=== PATIENT | female | born 1950 | race American Indian/Alaskan Native ===

== ENCOUNTER 2019-07-17 12:59 | Emergency (ER) | payer MEDICARE ==
[2019-07-17 13:24] VITALS: BP 146/79
--- NOTE | 2019-07-17 13:47 | Emergency Department Report ---
ED General Adult HPI - General Chief complaint: Medical Clearance Stated complaint: HYPERTENSION/AMS Time Seen by Provider: 07/17/19 13:43 Source: EMS Mode of arrival: Wheelchair Limitations: No Limitations - History of Present Illness Initial comments: Patient is a patient at [facility] and is currently being treated for schizoaffective disorder and acute psychosis. Patient's blood pressure at [place] was 202/110 with a heart rate of 107. Patient did admit to not taking any blood pressure medicines for the past several weeks. She denies any chest pain shortness of breath focal neurological signs at this time. Severity scale (0 -10): 0 - Related Data Previous Rx's Medication Instructions Recorded Last Taken Type Amlodipine Besylate [Norvasc] 5 mg PO DAILY #30 tablet 07/17/19 Unknown Rx Allergies Allergy/AdvReac Type Severity Reaction Status Date / Time No Known Allergies Allergy Verified 07/17/19 13:24 ED Review of Systems ROS: Stated complaint: HYPERTENSION/AMS Other details as noted in HPI Comment: All other systems reviewed and negative ED Past Medical Hx - Past Medical History Previous Medical History?: Yes Hx Hypertension: Yes Hx Psychiatric Treatment: Yes (schzioaffective) - Social History Smoking Status: Current Every Day Smoker Substance Use Type: Alcohol, Marijuana - Medications Home Medications: Home Medications Medication Instructions Recorded Confirmed Last Taken Type Amlodipine Besylate [Norvasc] 5 mg PO DAILY #30 tablet 07/17/19 Unknown Rx ED Physical Exam - General Limitations: No Limitations General appearance: alert, in no apparent distress - Head Head exam: Present: atraumatic, normocephalic - Eye Eye exam: Present: normal appearance - ENT ENT exam: Present: normal orophraynx, mucous membranes moist - Neck Neck exam: Present: normal inspection - Respiratory Respiratory exam: Present: normal lung sounds bilaterally. Absent: respiratory distress, wheezes, rales, rhonchi - Cardiovascular Cardiovascular Exam: Present: regular rate, normal rhythm, normal heart sounds. Absent: systolic murmur, diastolic murmur, rubs, gallop - GI/Abdominal GI/Abdominal exam: Present: soft, normal bowel sounds - Extremities Exam Extremities exam: Present: normal inspection - Back Exam Back exam: Present: normal inspection - Neurological Exam Neurological exam: Present: alert, oriented X3 - Psychiatric Psychiatric exam: Present: normal mood, other (Patient is hyperverbal and has tangential thoughts. However she is not an extremis at this time.) - Skin Skin exam: Present: warm, dry, intact, normal color. Absent: rash ED Course Vital Signs 07/17/19 13:00 Temperature 98.8 F Pulse Rate 97 H Respiratory 20 Rate Blood Pressure 146/79 [Right] O2 Sat by Pulse 98 Oximetry ED Medical Decision Making - Medical Decision Making Patient is a 69-year-old F [place]ian female who has a history of hypertension who is presenting for medical clearance to return back to [place]. Patient blood pressure is better here in our emergency department. Patient will be given a prescription for Norvasc and be discharged home. Patient does not remember the blood pressure medication she is on. Critical care attestation.: If time is entered above; I have spent that time in minutes in the direct care of this critically ill patient, excluding procedure time. ED Disposition Clinical Impression: Hypertensive urgency Disposition: DC/TX-65 PSY HOSP/PSY UNIT Is pt being admited?: No Does the pt Need Aspirin: No Condition: Stable Additional Instructions: Patient is medically cleared to return to [facility] Time of Disposition: 13:47
[2019-07-17 14:45] LABS: Hematocrit 38.2 % (30.3-42.9); Hemoglobin 12.5 gm/dl (10.1-14.3); Mean Corpuscular HGB Conc 33 % (30-34); Mean Corpuscular Volume 89 fl (79-97); Platelet Count 263 K/mm3 (140-440); Red Blood Count 4.31 M/mm3 (3.65-5.03); Red Cell Distribution Width 15.8 % (13.2-15.2)
[2019-07-17 15:13] LABS: Alanine Aminotransferase 8 units/L (7-56); Albumin 3.6 g/dL (3.9-5); BUN/Creatinine Ratio 18; Blood Urea Nitrogen 11 mg/dL (7-17); Calcium 10.3 mg/dL (8.4-10.2); Hemolysis Index 4
== END 2019-07-17 17:38 ==
LOC: ED 12:59
DX: I16.0 Hypertensive urgency (principal); F20.9 Schizophrenia, unspecified; F17.200 Nicotine dependence, unspecified, uncomplicated; F12.10 Cannabis abuse, uncomplicated; Z79.899 Other long term (current) drug therapy
CPT/HCPCS: 36415; 80053; 85027

== ENCOUNTER 2019-08-07 09:13 | Emergency (ER) | payer MEDICARE ==
[2019-08-07] MEDS ORDERED: ZIPRASIDONE MESYLATE 20 MG VIAL IM ONE (11:02)
[2019-08-07 14:49] LABS: Basophils % (Auto) 0.3 % (0.0-1.8); Eosinophils # (Auto) 0.1 K/mm3 (0.0-0.4); Eosinophils % (Auto) 1.2 % (0.0-4.3); Hemoglobin 12.1 gm/dl (10.1-14.3); Lymphocytes # (Auto) 2.6 K/mm3 (1.2-5.4); Lymphocytes % (Auto) 34.9 % (13.4-35.0); Mean Corpuscular HGB Conc 33 % (30-34); Mean Corpuscular Volume 90 fl (79-97); Monocytes # (Auto) 1.1 K/mm3 (0.0-0.8); Monocytes % (Auto) 14.1 % (0.0-7.3); Platelet Count 252 K/mm3 (140-440); Red Blood Count 4.13 M/mm3 (3.65-5.03); Red Cell Distribution Width 15.3 % (13.2-15.2)
[2019-08-07 15:02] LABS: Alanine Aminotransferase 12 units/L (7-56); Albumin 3.8 g/dL (3.9-5); BUN/Creatinine Ratio 11; Blood Urea Nitrogen 9 mg/dL (7-17); Calcium 9.9 mg/dL (8.4-10.2); Hemolysis Index 5
[2019-08-07 15:03] LABS: Bilirubin,Direct < 0.2 mg/dL (0-0.2)
--- NOTE | 2019-08-07 19:17 | Emergency Department Report ---
ED General Adult HPI - General Chief complaint: Psych Stated complaint: MARISELA EVSRINIVASA Time Seen by Provider: 08/07/19 10:30 Source: EMS Mode of arrival: Stretcher Limitations: Altered Mental Status - History of Present Illness Initial comments: This is a 69-year-old female who appears to have discharge paperwork in hand from the patient was delusional complaining of , ranting and rambling. She therefore was sent to the emergency department for evaluation. Upon my encounter the patient is obviously responding to internal stimuli. She appears to be delusional and paranoid. She does not cooperate with nursing staff. She received Geodon to facilitate her medical clearance. - Related Data Previous Rx's Medication Instructions Recorded Last Taken Type Amlodipine Besylate [Norvasc] 5 mg PO DAILY #30 tablet 07/17/19 Unknown Rx Allergies Allergy/AdvReac Type Severity Reaction Status Date / Time No Known Allergies Allergy Verified 07/17/19 13:24 ED Review of Systems ROS: Stated complaint: MH EVAL Other details as noted in HPI Comment: Unobtainable due to pts medical conditions ED Past Medical Hx - Past Medical History Hx Hypertension: Yes Hx Psychiatric Treatment: Yes (schzioaffective) - Social History Smoking Status: Current Every Day Smoker Substance Use Type: Alcohol, Marijuana - Medications Home Medications: Home Medications Medication Instructions Recorded Confirmed Last Taken Type Amlodipine Besylate [Norvasc] 5 mg PO DAILY #30 tablet 07/17/19 Unknown Rx ED Physical Exam - General Limitations: Altered Mental Status General appearance: alert, in no apparent distress - Head Head exam: Present: atraumatic, normocephalic - Eye Eye exam: Present: normal appearance. Absent: scleral icterus - ENT ENT exam: Present: mucous membranes moist - Neck Neck exam: Present: normal inspection - Respiratory Respiratory exam: Present: normal lung sounds bilaterally. Absent: respiratory distress - Cardiovascular Cardiovascular Exam: Present: regular rate, normal rhythm. Absent: systolic murmur, diastolic murmur, rubs, gallop - GI/Abdominal GI/Abdominal exam: Present: soft, normal bowel sounds. Absent: distended, tenderness, guarding, rebound - Extremities Exam Extremities exam: Present: normal inspection - Back Exam Back exam: Present: normal inspection - Neurological Exam Neurological exam: Present: CN II-XII intact (As testable). Absent: motor sensory deficit - Psychiatric Psychiatric exam: Present: agitated, flat affect - Skin Skin exam: Present: warm, dry, intact, normal color. Absent: rash ED Course - Reevaluation(s) Reevaluation #1: 1013. Mental health informed. I assume the patient may be eligible to go back to [place]. I will anterior PRN Geodon orders. 08/07/19 19:18 08/07/19 19:20 ED Medical Decision Making - Lab Data Result diagrams: 08/07/19 13:43 08/07/19 13:43 Laboratory Results - last 24 hr 08/07/19 08/07/19 13:43 13:43 WBC 7.6 RBC 4.13 Hgb 12.1 Hct 37.0 MCV 90 MCH 29 MCHC 33 RDW 15.3 H Plt Count 252 Lymph % (Auto) 34.9 Logan % (Auto) 14.1 H Eos % (Auto) 1.2 Baso % (Auto) 0.3 Lymph # 2.6 Logan # 1.1 H Eos # 0.1 Baso # 0.0 Seg Neutrophils % 49.5 Seg Neutrophils # 3.7 Sodium 140 Potassium 4.1 Chloride 102.1 Carbon Dioxide 27 Anion Gap 15 BUN 9 Creatinine 0.8 Estimated GFR > 60 BUN/Creatinine Ratio 11 Glucose 127 H Calcium 9.9 Magnesium 2.00 Total Bilirubin 0.30 Direct Bilirubin < 0.2 AST 15 ALT 12 Alkaline Phosphatase 93 Total Creatine Kinase 195 H CK-MB (CK-2) 3.0 CK-MB (CK-2) Rel Index 1.5 Troponin T < 0.010 Total Protein 6.8 Albumin 3.8 L Albumin/Globulin Ratio 1.3 Critical care attestation.: If time is entered above; I have spent that time in minutes in the direct care of this critically ill patient, excluding procedure time. ED Disposition Clinical Impression: Acute psychosis Disposition: DC/TX-65 PSY HOSP/PSY UNIT Is pt being admited?: No Does the pt Need Aspirin: No Condition: Stable Referrals: JOLENE STOVER [Other] - 3-5 Days Time of Disposition: 19:20
[2019-08-07] MEDS ORDERED: ALUM-MAG HYDROXIDE-SIMETHICONE 200-200-20MG/5ML ORAL LIQD 30 ML PO PRN (19:21)
[2019-08-07] MEDS ORDERED: MAGNESIUM HYDROXIDE (MOM) ORAL LIQD UDC PO PRN (19:21)
[2019-08-07] MEDS ORDERED: ACETAMINOPHEN 325 MG TAB PO PRN (19:21)
[2019-08-07] MEDS ORDERED: ZIPRASIDONE MESYLATE 20 MG VIAL IM PRN (19:22)
[2019-08-07 20:07] VITALS: BP 141/72
[2019-08-07 21:51] LABS: Bacteria,Urine 1+ /HPF (Negative); Bilirubin,Urine NEG (Negative); Blood,Urine NEG (Negative); Color,Urine Yellow (Yellow); Protein,Urine <15 mg/dL mg/dL (Negative)
[2019-08-07] MEDS ORDERED: ZIPRASIDONE 20 MG CAP PO SCH (22:00)
[2019-08-07] MEDS ORDERED: NITROFURANTOIN MONOHYD/M-CRYST 100 MG CAP PO ONE (22:34)
== END 2019-08-07 23:35 ==
LOC: ED 09:13 → EEVIPCON 09:13 → ED 23:35
DX: F23 Brief psychotic disorder (principal); I10 Essential (primary) hypertension; F17.200 Nicotine dependence, unspecified, uncomplicated; F12.10 Cannabis abuse, uncomplicated; Z79.899 Other long term (current) drug therapy
CPT/HCPCS: 36415; 80048; 80076; 81001; 82550; 82553; 83735; 84484; 85025; 96372; 99285; J3486

== ENCOUNTER 2019-08-07 18:57 | Inpatient (IN) | payer MEDICARE ==
[2019-08-07 21:40] LABS: Bilirubin,Urine NEG (Negative); Blood,Urine NEG (Negative); Color,Urine Yellow (Yellow); Mucus,Urine FEW /HPF; Protein,Urine <15 mg/dL mg/dL (Negative)
--- NOTE | 2019-08-08 09:10 | History and Physical Report ---
GP History & Physical - History of Present Illness Date of admission: 08/07/19 Date of Examination: 08/08/19 Reason for Admission: Danger to self History of Present Illness: Andrea Farr is a 69y/o female patient who was admitted into the hospital for bizarre, and delusional behavior and responding to internal stimuli as stated by admission note. During my interview with the patient this morning, she is heard talking to herself as I'm approaching the room. She is sitting on the night table looking out of the window talking loudly. The patient is a/o x 2. She is a poor historian. She's unable to give any insight at to her history or what is presently going on with her. She tells me, "I've been discharged. I need to pack my clothes up." She says, "I'm taking this with me." She picks up the Bible laying in the shelf and shows it to me. When asked about her mood, the patient states, "I'm doing fine. I'm great." She denies SI/HI or hallucinations of any kind. PAST PSYCHIATRIC HISTORY Unable to obtain PAST MEDICAL HISTORY: Unable to obtain Family Psychiatric History: Unable to obtain SOCIAL HISTORY Unable to obtain REVIEW OF SYSTEMS Constitutional: Negative for weight loss ENT: Negative for stridor Respiratory: Negative for cough or hemoptysis All other systems reviewed and are negative MENTAL STATUS EXAMINATION General Appearance: Dressed appropriately. Behavior: Cooperative Mood: "fine, great" Affect: Congruent with stated mood Speech: Normal tone and pace Thought Process: Responding to internal stimuli Suicidal Ideation: Denies Homicidal Ideation: Denies Hallucinations: Auditory Delusions: Yes Insight and Judgment: Limited Memory/Cognition: Limited ASSESSMENT Schizoaffective Disorder Treatment Plan Patient will be admitted for inpatient psychiatric evaluation, medication adjustment and close monitoring The patient's behavior, mood, sleep and appetite will be closely monitored. Patient will be enrolled in individual and group therapeutic sessions and encouraged to attend. Patient will be provided with a safe and structured environment. Patient's physical health needs will be addressed by the Hospitalist. Hospitalist Consulted Labs including CBC, CMP, Lipid profile and Hemoglobin A1C ordered Social Assessment will be completed and the Docking Pilot will work with patient and family to ensure a suitable and safe disposition Medication adjustment will be made as clinically indicated Usual Wellness Buddhist/Preservation: Depakote DR 250mg po BID Risperidone 0.5mg po BID Trazodone 50mg po qhs Melatonin 5mg po qhs prn insomnia Geodon 10mg IM q6h prn agitation This is an acknowledgement statement that Andrea Farr is a 69y/o female patient who requires inpatient psychiatric admission for treatment which could reasonably be expected to improve the patient's condition for Schizoaffective Disorder Estimated period of time patient will need to remain in the hospital: [7] Plan for post-hospital care: [Outpatient ] Legal Status: Voluntary Reaction to Hospitalization: Accepting Medications and Allergies Allergies Allergy/AdvReac Type Severity Reaction Status Date / Time No Known Allergies Allergy Verified 07/17/19 13:24 Home Medications Medication Instructions Recorded Confirmed Last Taken Type Amlodipine Besylate [Norvasc] 5 mg PO DAILY #30 tablet 07/17/19 08/08/19 Unknown Rx Nitrofurantoin [place]/M-Cryst 100 mg PO Q12HR #14 capsule 08/07/19 08/08/19 Unknown Rx [Macrobid CAP] Results - Results Labs/Vitals: Laboratory Last Values POC Glucose 112 (70-105) H 08/08/19 00:18 Hemoglobin A1c 5.7 % (4-6) 08/07/19 13:43 Urine Color Yellow (Yellow) 08/07/19 21:20 Urine Turbidity Clear (Clear) 08/07/19 21:20 Urine pH 6.0 (5.0-7.0) 08/07/19 21:20 Ur Specific [place] 1.013 (1.003-1.030) 08/07/19 21:20 Urine Protein <15 mg/dl mg/dL (Negative) 08/07/19 21:20 Urine Glucose (UA) Neg mg/dL (Negative) 08/07/19 21:20 Urine Ketones Neg mg/dL (Negative) 08/07/19 21:20 Urine Blood Neg (Negative) 08/07/19 21:20 Urine Nitrite Neg (Negative) 08/07/19 21:20 Urine Bilirubin Neg (Negative) 08/07/19 21:20 Urine Urobilinogen 2.0 mg/dL (<2.0) 08/07/19 21:20 Ur Leukocyte Esterase Mod (Negative) 08/07/19 21:20 Urine WBC (Auto) 23.0 /HPF (0.0-6.0) H 08/07/19 21:20 Urine RBC (Auto) 2.0 /HPF (0.0-6.0) 08/07/19 21:20 U Epithel Cells (Auto) < 1.0 /HPF (0-13.0) 08/07/19 21:20 Urine Mucus Few /HPF 08/07/19 21:20 Physician Certification - Certification Statement Physician Certification Statement: This is an acknowledgement statement that ANDREA FARR is a 69 year old F who requires inpatient psychiatric admission for treatment which could reasonably be expected to improve the patient's condition for Estimated period of time patient will need to remain in the hospital: [ ] Plan for post-hospital care: [ ]
[2019-08-08] MEDS ORDERED: ZIPRASIDONE MESYLATE 20 MG VIAL IM PRN (09:15)
--- NOTE | 2019-08-08 11:13 | Consultation ---
History of Present Illness - Reason for Consult Consult date: 08/08/19 Hypertension Requesting physician: CHONG BENÍTEZ - History of Present Illness Patient is 69 yo with hypertension who was admitted into the hospital for schizoaffective disorder. Hospitalist consulted for management of hypertension. She has been on Norvasc for hypertension. patient is talking to herself could not answer most questions. She is poor historian. Past History Past Medical History: hypertension Past Surgical History: Other (Unknown) Social history: smoking Family history: no significant family history Medications and Allergies Allergies Allergy/AdvReac Type Severity Reaction Status Date / Time No Known Allergies Allergy Verified 07/17/19 13:24 Home Medications Medication Instructions Recorded Confirmed Last Taken Type Amlodipine Besylate [Norvasc] 5 mg PO DAILY #30 tablet 07/17/19 08/08/19 Unknown Rx Nitrofurantoin [place]/M-Cryst 100 mg PO Q12HR #14 capsule 08/07/19 08/08/19 Unknown Rx [Macrobid CAP] Active Meds: Active Medications Divalproex Sodium (Depakote Dr) 125 mg PO BID WILDER Melatonin (Melatonin) 5 mg PO QHS PRN PRN Reason: Sleep Risperidone (Risperdal) 0.5 mg PO BID WILDER Trazodone HCl (Desyrel) 50 mg PO QHS WILDER Ziprasidone (Geodon) 10 mg IM Q6H PRN PRN Reason: Agitation Review of Systems ROS unobtainable: due to mental status (Patient cannot because of schizoaffective disorder) Exam - Physical Exam Narrative exam: GEN: Not in acute distress, obese, sitting up in chair HEENT: Normocephalic, atraumatic, Neck: supple, No JVD Lungs: Clear to auscultation bilaterally, heart;S1 and S2 reg, no murmurs, rubs or gallop Abd:soft, non tender, non distended, normal bowel sounds, Ext: No edema, no clubbing, no cyanosis, Neuro: Awake,alert,oriented X3 , no focal signs, Psych:maniac, talking to self Results - Labs Labs: Abnormal lab results 08/07/19 08/08/19 Range/Units 21:20 00:18 POC Glucose 112 H (70-105) Urine WBC (Auto) 23.0 H (0.0-6.0) /HPF Assessment and Plan Schizoaffective disorder Managed by Psychiatry attending [place] [facility] currently elevated at 165/71 Monitor BP check q shift Thanks for the consult, Dr. Benítez Will follow
[2019-08-08] MEDS: DIVALPROEX DR 125 MG TAB PO SCH ×2 (11:31→21:10)
[2019-08-08] MEDS: risperiDONE 0.25 MG TAB PO SCH ×3 (11:31→21:11)
[2019-08-08] MEDS: amLODIPine 5 MG TAB PO SCH (14:44)
[2019-08-08] MEDS: NITROFURANTOIN MONOHYD/M-CRYST 100 MG CAP PO SCH ×2 (14:45→22:46)
[2019-08-08] MEDS ORDERED: HALOPERIDOL LACTATE 5 MG/1 ML INJ IM PRN (21:10)
[2019-08-08] MEDS: traZODone 50 MG TAB PO SCH ×2 (21:11)
[2019-08-08] MEDS: LORazepam 2 MG/ML VIAL IM SCH (22:45)
[2019-08-09] MEDS: LORazepam 2 MG/ML VIAL IM SCH (03:46)
[2019-08-09 06:00] LABS: Basophils % (Auto) 0.4 % (0.0-1.8); Eosinophils # (Auto) 0.1 K/mm3 (0.0-0.4); Hematocrit 38.4 % (30.3-42.9); Hemoglobin 12.3 gm/dl (10.1-14.3); Lymphocytes # (Auto) 2.8 K/mm3 (1.2-5.4); Lymphocytes % (Auto) 34.9 % (13.4-35.0); Mean Corpuscular HGB Conc 32 % (30-34); Mean Corpuscular Volume 89 fl (79-97); Monocytes # (Auto) 1.1 K/mm3 (0.0-0.8); Monocytes % (Auto) 13.6 % (0.0-7.3); Platelet Count 266 K/mm3 (140-440); Red Cell Distribution Width 15.3 % (13.2-15.2)
[2019-08-09 06:16] LABS: Alanine Aminotransferase 12 units/L (7-56); Albumin 3.7 g/dL (3.9-5); BUN/Creatinine Ratio 17; Blood Urea Nitrogen 12 mg/dL (7-17); Calcium 9.9 mg/dL (8.4-10.2); Hemolysis Index 8; LDL Cholesterol,Direct 49 mg/dL (50-130)
[2019-08-09 06:33] LABS: Chol/HDL Ratio 1.76 %; HDL Cholesterol 65 mg/dL (40-59)
--- NOTE | 2019-08-09 08:28 | Progress Note ---
Subjective Date of service: 08/09/19 Subjective Comment: The patient's medical record was reviewed and the patient's progress was discussed with the nursing staff. The nurse note states the patient is alert and oriented to person, disorganized, bizarre, and responding to internal stimuli. THE NURSE TECH STATED THAT PATIENT TOOK MR. CORNEL FREDERICK GLASSES AND WHEN SHE ASKED HER , SAID THAT SHE TOOK THE GLASSES TO PATIENTS ROOM . , UNABLE TO LOCATE GLASSES, PATIENT BECAME MORE ANXIOUS , PACING AND IMPULSIVE DESPITE GEODON GIVEN THIS AFTERNOON PATIENT INCONTINENT OF URINE , IN THE ROOM , REMOVED HER CLOTHES AND WAS NAKED IN THE HALLWAY. During my interview with the patient this morning, she is lying in bed asleep. She easily arouses. She is a/o x 1. She is calm and cooperative. She describes her mood as "good." She denies SI/HI, and states, "I love everybody." She denies hallucinations of any kind. The patient states, "I slept good" when asked. As I'm leaving the room, the patient is talking aloud to herself. Reason for continued inpatient treatment: The patient continues to be disorganized, hallucinate and exhibit bizarre behavior. REVIEW OF SYSTEMS Constitutional: Negative for weight loss ENT: Negative for stridor Respiratory: Negative for cough or hemoptysis All other systems reviewed and are negative MENTAL STATUS EXAMINATION General Appearance: Dressed appropriately. Behavior: calm and cooperative Mood: "good" Affect: Restricted Speech: Normal tone and pace Thought Process: Responding to internal stimuli Suicidal Ideation: Denies Homicidal Ideation: Denies Hallucinations: Auditory Delusions: None elicited Insight and Judgment: Limited Memory/Cognition: Limited ASSESSMENT Schizoaffective Disorder Treatment Plan Patient will be admitted for inpatient psychiatric evaluation, medication adjustment and close monitoring The patient's behavior, mood, sleep and appetite will be closely monitored. Patient will be enrolled in individual and group therapeutic sessions and encouraged to attend. Patient will be provided with a safe and structured environment. Patient's physical health needs will be addressed by the Hospitalist. Hospitalist Consulted Labs including CBC, CMP, Lipid profile and Hemoglobin A1C ordered Social Assessment will be completed and the [place] Worker will work with patient and family to ensure a suitable and safe disposition Medication adjustment will be made as clinically indicated Usual Wellness Adventist/Preservation: Increased Risperidone 1mg po BID Haldol 2mg IM q6h prn agitation yesterday Lorazepam 1mg IM q6h prn agitation yesterday D/c Geodon 10mg IM q6h prn agitation (did not respond well to) Estimated period of time patient will need to remain in the hospital: [6] Plan for post-hospital care: [Outpatient ] Medications and Allergies Allergies Allergy/AdvReac Type Severity Reaction Status Date / Time No Known Allergies Allergy Verified 07/17/19 13:24 Home Medications Medication Instructions Recorded Confirmed Last Taken Type Amlodipine Besylate [Norvasc] 5 mg PO DAILY #30 tablet 07/17/19 08/08/19 Unknown Rx Nitrofurantoin [place]/M-Cryst 100 mg PO Q12HR #14 capsule 08/07/19 08/08/19 Unknown Rx [Macrobid CAP] Active Meds: Active Medications Amlodipine Besylate (Amlodipine) 5 mg PO DAILY [facility] Last Admin: 08/08/19 14:44 Dose: 5 mg Documented by: Divalproex Sodium (Depakote Dr) 125 mg PO BID [facility] Last Admin: 08/08/19 21:10 Dose: 125 mg Documented by: Haloperidol Lactate (Haldol) 2 mg IM Q6H PRN PRN Reason: Agitation Lorazepam (Ativan) 1 mg IM Q6H [facility] Last Admin: 08/09/19 03:46 Dose: 1 mg Documented by: Melatonin (Melatonin) 5 mg PO QHS PRN PRN Reason: Sleep Nitrofurantoin Macrocrystals (Macrobid) 100 mg PO Q12HR [facility] Last Admin: 08/08/19 22:46 Dose: Not Given Documented by: Risperidone (Risperdal) 0.5 mg PO BID [facility] Last Admin: 08/08/19 21:10 Dose: Not Given Documented by: Trazodone HCl (Desyrel) 50 mg PO QHS [facility] Last Admin: 08/08/19 21:11 Dose: Not Given Documented by: Results - Results Labs/Vitals: Laboratory Last Values WBC 8.1 K/mm3 (4.5-11.0) 08/09/19 05:41 RBC 4.30 M/mm3 (3.65-5.03) 08/09/19 05:41 Hgb 12.3 gm/dl (10.1-14.3) 08/09/19 05:41 Hct 38.4 % (30.3-42.9) 08/09/19 05:41 MCV 89 fl (79-97) 08/09/19 05:41 MCH 29 pg (28-32) 08/09/19 05:41 MCHC 32 % (30-34) 08/09/19 05:41 RDW 15.3 % (13.2-15.2) H 08/09/19 05:41 Plt Count 266 K/mm3 (140-440) 08/09/19 05:41 Lymph % (Auto) 34.9 % (13.4-35.0) 08/09/19 05:41 [place] % (Auto) 13.6 % (0.0-7.3) H 08/09/19 05:41 Eos % (Auto) 1.0 % (0.0-4.3) 08/09/19 05:41 Baso % (Auto) 0.4 % (0.0-1.8) 08/09/19 05:41 Lymph # 2.8 K/mm3 (1.2-5.4) 08/09/19 05:41 [place] # 1.1 K/mm3 (0.0-0.8) H 08/09/19 05:41 Eos # 0.1 K/mm3 (0.0-0.4) 08/09/19 05:41 Baso # 0.0 K/mm3 (0.0-0.1) 08/09/19 05:41 Seg Neutrophils % 50.1 % (40.0-70.0) 08/09/19 05:41 Seg Neutrophils # 4.0 K/mm3 (1.8-7.7) 08/09/19 05:41 Sodium 140 mmol/L (137-145) 08/09/19 05:41 Potassium 3.9 mmol/L (3.6-5.0) 08/09/19 05:41 Chloride 104.0 mmol/L (98-107) 08/09/19 05:41 Carbon Dioxide 25 mmol/L (22-30) 08/09/19 05:41 Anion Gap 15 mmol/L 08/09/19 05:41 BUN 12 mg/dL (7-17) 08/09/19 05:41 Creatinine 0.7 mg/dL (0.7-1.2) 08/09/19 05:41 Estimated GFR > 60 ml/min 08/09/19 05:41 BUN/Creatinine Ratio 17 % 08/09/19 05:41 Glucose 106 mg/dL (65-100) H 08/09/19 05:41 POC Glucose 112 (70-105) H 08/08/19 00:18 Hemoglobin A1c 5.7 % (4-6) 08/07/19 13:43 Calcium 9.9 mg/dL (8.4-10.2) 08/09/19 05:41 Total Bilirubin 0.40 mg/dL (0.1-1.2) 08/09/19 05:41 AST 16 units/L (5-40) 08/09/19 05:41 ALT 12 units/L (7-56) 08/09/19 05:41 Alkaline Phosphatase 91 units/L (35-129) 08/09/19 05:41 Total Protein 6.7 g/dL (6.3-8.2) 08/09/19 05:41 Albumin 3.7 g/dL (3.9-5) L 08/09/19 05:41 Albumin/Globulin Ratio 1.2 % 08/09/19 05:41 Triglycerides 33 mg/dL (2-149) 08/09/19 05:41 Cholesterol 115 mg/dL (50-199) 08/09/19 05:41 LDL Cholesterol Direct 49 mg/dL (50-130) L 08/09/19 05:41 HDL Cholesterol 65 mg/dL (40-59) H 08/09/19 05:41 Cholesterol/HDL Ratio 1.76 % 08/09/19 05:41 TSH 1.340 mlU/mL (0.270-4.200) 08/09/19 05:41 Urine Color Yellow (Yellow) 08/07/19 21:20 Urine Turbidity Clear (Clear) 08/07/19 21:20 Urine pH 6.0 (5.0-7.0) 08/07/19 21:20 Ur Specific [place] 1.013 (1.003-1.030) 08/07/19 21:20 Urine Protein <15 mg/dl mg/dL (Negative) 08/07/19 21:20 Urine Glucose (UA) Neg mg/dL (Negative) 08/07/19 21:20 Urine Ketones Neg mg/dL (Negative) 08/07/19 21:20 Urine Blood Neg (Negative) 08/07/19 21:20 Urine Nitrite Neg (Negative) 08/07/19 21:20 Urine Bilirubin Neg (Negative) 08/07/19 21:20 Urine Urobilinogen 2.0 mg/dL (<2.0) 08/07/19 21:20 Ur Leukocyte Esterase Mod (Negative) 08/07/19 21:20 Urine WBC (Auto) 23.0 /HPF (0.0-6.0) H 08/07/19 21:20 Urine RBC (Auto) 2.0 /HPF (0.0-6.0) 08/07/19 21:20 U Epithel Cells (Auto) < 1.0 /HPF (0-13.0) 08/07/19 21:20 Urine Mucus Few /HPF 08/07/19 21:20 Last Vital Signs Temp 98.6 F 08/09/19 05:39 Pulse 84 08/09/19 05:40 Resp 18 08/08/19 14:41 BP 111/57 08/09/19 05:40 Pulse Ox 91 08/08/19 14:41
[2019-08-09] MEDS ORDERED: LORazepam 2 MG/ML VIAL IM PRN (09:00)
[2019-08-09] MEDS: amLODIPine 5 MG TAB PO SCH (14:12)
[2019-08-09] MEDS: risperiDONE 1 MG TAB PO SCH ×2 (14:12→21:27)
[2019-08-09] MEDS: NITROFURANTOIN MONOHYD/M-CRYST 100 MG CAP PO SCH ×2 (14:13→21:27)
[2019-08-09] MEDS: DIVALPROEX DR 125 MG TAB PO SCH ×2 (14:13→21:26)
[2019-08-09] MEDS: MELATONIN 5 MG TAB PO PRN (21:27)
[2019-08-09] MEDS: traZODone 50 MG TAB PO SCH (21:27)
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
[2019-08-10] MEDS: DIVALPROEX DR 250 MG TAB PO SCH ×2 (11:14→22:00)
[2019-08-10] MEDS: amLODIPine 5 MG TAB PO SCH (11:14)
[2019-08-10] MEDS: risperiDONE 1 MG TAB PO SCH ×2 (11:15→22:00)
[2019-08-10] MEDS: NITROFURANTOIN MONOHYD/M-CRYST 100 MG CAP PO SCH ×2 (11:19→22:00)
[2019-08-10] MEDS: traZODone 50 MG TAB PO SCH (22:01)
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
[2019-08-11] MEDS: risperiDONE 1 MG TAB PO SCH ×2 (09:42→21:07)
[2019-08-11] MEDS: amLODIPine 5 MG TAB PO SCH (09:42)
[2019-08-11] MEDS: NITROFURANTOIN MONOHYD/M-CRYST 100 MG CAP PO SCH ×2 (09:43→21:07)
[2019-08-11] MEDS: DIVALPROEX DR 250 MG TAB PO SCH ×2 (09:43→21:07)
--- NOTE | 2019-08-11 11:31 | Progress Note ---
Assessment and Plan - Patient Problems (1) Hypertension Current Visit: Yes Status: Acute Qualifiers: Hypertension type: essential hypertension Qualified Code(s): I10 - Essential (primary) hypertension Plan to address problem: Monitor blood pressure every shift, continue medical management. History Interval history: 69 YO Female with HTN admitted to [facility] for psychiatric stabilization. Patient convalesced well overnight. No reported nursing events. Patient denies fever, chills, chest pain, palpitations, no reported trauma or falls. Hospitalist Physical - Constitutional Vitals: Temp Pulse Resp BP Pulse Ox 97.7 F 67 18 145/91 97 08/11/19 08:24 08/11/19 08:24 08/11/19 08:24 08/11/19 08:24 08/11/19 08:24 General appearance: Present: no acute distress, obese - EENT Eyes: Present: PERRL ENT: hearing intact - Neck Neck: Present: supple - Respiratory Respiratory: bilateral: CTA - Cardiovascular Rhythm: regular Heart Sounds: Present: S1 & S2 - Extremities Extremities: no ischemia Peripheral Pulses: within normal limits - Abdominal General gastrointestinal: soft, non-tender, non-distended - Integumentary Integumentary: Present: clear, dry - Psychiatric Psychiatric: cooperative - Neurologic Neurologic: CNII-XII intact Results - Labs CBC & Chem 7: 08/09/19 05:41 08/09/19 05:41 Labs: Laboratory Last Values WBC 8.1 K/mm3 (4.5-11.0) 08/09/19 05:41 RBC 4.30 M/mm3 (3.65-5.03) 08/09/19 05:41 Hgb 12.3 gm/dl (10.1-14.3) 08/09/19 05:41 Hct 38.4 % (30.3-42.9) 08/09/19 05:41 MCV 89 fl (79-97) 08/09/19 05:41 MCH 29 pg (28-32) 08/09/19 05:41 MCHC 32 % (30-34) 08/09/19 05:41 RDW 15.3 % (13.2-15.2) H 08/09/19 05:41 Plt Count 266 K/mm3 (140-440) 08/09/19 05:41 Lymph % (Auto) 34.9 % (13.4-35.0) 08/09/19 05:41 [place] % (Auto) 13.6 % (0.0-7.3) H 08/09/19 05:41 Eos % (Auto) 1.0 % (0.0-4.3) 08/09/19 05:41 Baso % (Auto) 0.4 % (0.0-1.8) 08/09/19 05:41 Lymph # 2.8 K/mm3 (1.2-5.4) 08/09/19 05:41 [place] # 1.1 K/mm3 (0.0-0.8) H 08/09/19 05:41 Eos # 0.1 K/mm3 (0.0-0.4) 08/09/19 05:41 Baso # 0.0 K/mm3 (0.0-0.1) 08/09/19 05:41 Seg Neutrophils % 50.1 % (40.0-70.0) 08/09/19 05:41 Seg Neutrophils # 4.0 K/mm3 (1.8-7.7) 08/09/19 05:41 Sodium 140 mmol/L (137-145) 08/09/19 05:41 Potassium 3.9 mmol/L (3.6-5.0) 08/09/19 05:41 Chloride 104.0 mmol/L (98-107) 08/09/19 05:41 Carbon Dioxide 25 mmol/L (22-30) 08/09/19 05:41 Anion Gap 15 mmol/L 08/09/19 05:41 BUN 12 mg/dL (7-17) 08/09/19 05:41 Creatinine 0.7 mg/dL (0.7-1.2) 08/09/19 05:41 Estimated GFR > 60 ml/min 08/09/19 05:41 BUN/Creatinine Ratio 17 % 08/09/19 05:41 Glucose 106 mg/dL (65-100) H 08/09/19 05:41 POC Glucose 112 (70-105) H 08/08/19 00:18 Hemoglobin A1c 5.7 % (4-6) 08/07/19 13:43 Calcium 9.9 mg/dL (8.4-10.2) 08/09/19 05:41 Total Bilirubin 0.40 mg/dL (0.1-1.2) 08/09/19 05:41 AST 16 units/L (5-40) 08/09/19 05:41 ALT 12 units/L (7-56) 08/09/19 05:41 Alkaline Phosphatase 91 units/L (35-129) 08/09/19 05:41 Total Protein 6.7 g/dL (6.3-8.2) 08/09/19 05:41 Albumin 3.7 g/dL (3.9-5) L 08/09/19 05:41 Albumin/Globulin Ratio 1.2 % 08/09/19 05:41 Triglycerides 33 mg/dL (2-149) 08/09/19 05:41 Cholesterol 115 mg/dL (50-199) 08/09/19 05:41 LDL Cholesterol Direct 49 mg/dL (50-130) L 08/09/19 05:41 HDL Cholesterol 65 mg/dL (40-59) H 08/09/19 05:41 Cholesterol/HDL Ratio 1.76 % 08/09/19 05:41 TSH 1.340 mlU/mL (0.270-4.200) 08/09/19 05:41 Urine Color Yellow (Yellow) 08/07/19 21:20 Urine Turbidity Clear (Clear) 08/07/19 21:20 Urine pH 6.0 (5.0-7.0) 08/07/19 21:20 Ur Specific [place] 1.013 (1.003-1.030) 08/07/19 21:20 Urine Protein <15 mg/dl mg/dL (Negative) 08/07/19 21:20 Urine Glucose (UA) Neg mg/dL (Negative) 08/07/19 21:20 Urine Ketones Neg mg/dL (Negative) 08/07/19 21:20 Urine Blood Neg (Negative) 08/07/19 21:20 Urine Nitrite Neg (Negative) 08/07/19 21:20 Urine Bilirubin Neg (Negative) 08/07/19 21:20 Urine Urobilinogen 2.0 mg/dL (<2.0) 08/07/19 21:20 Ur Leukocyte Esterase Mod (Negative) 08/07/19 21:20 Urine WBC (Auto) 23.0 /HPF (0.0-6.0) H 08/07/19 21:20 Urine RBC (Auto) 2.0 /HPF (0.0-6.0) 08/07/19 21:20 U Epithel Cells (Auto) < 1.0 /HPF (0-13.0) 08/07/19 21:20 Urine Mucus Few /HPF 08/07/19 21:20 Microbiology: Microbiology 08/07/19 21:20 Urine,Clean Catch Urine Culture - Final García/IV: Voiding Method Toilet Active Medications - Current Medications Current Medications: Generic Name Dose Route Start Last Admin Trade Name Freq PRN Reason Stop Dose Admin Amlodipine Besylate 5 mg 08/08/19 14:00 08/11/19 09:42 Amlodipine PO 5 mg DAILY [facility] Administration Divalproex Sodium 250 mg 08/10/19 10:00 08/11/19 09:[address] PO 250 mg BID [facility] Administration Haloperidol Lactate 2 mg 08/08/19 21:10 Haldol IM Q6H PRN Agitation Lorazepam 1 mg 08/09/19 09:00 Ativan IM Q6H PRN Agitation Melatonin 5 mg 08/08/19 22:00 08/09/19 21:27 Melatonin PO 5 mg QHS PRN Administration Sleep Nitrofurantoin Macrocrystals 100 mg 08/08/19 14:30 08/11/19 09:43 Macrobid PO 08/14/19 22:01 100 mg Q12HR [facility] Administration Risperidone 2 mg 08/11/19 10:00 08/11/19 09:42 Risperdal PO 2 mg BID [facility] Administration Trazodone HCl 50 mg 08/08/19 22:00 08/10/19 22:01 Desyrel PO 50 mg QHS [facility] Administration
[2019-08-11] MEDS: traZODone 50 MG TAB PO SCH (21:07)
--- NOTE | 2019-08-12 09:12 | Progress Note ---
Subjective Date of service: 08/12/19 Principal diagnosis: Schizoaffective Disorder Subjective Comment: The patient's medical record was reviewed and the patient's progress was discussed with the nursing staff. The nurse note states the patient is pacing hallway talking to herself. The patient removed all her clothes, sits down on the floor in front of her room in hallway. She also changes cloths frequently. During my interview with the patient this morning, she is sitting on the toilet. She says she feels "pretty good." She says her night went "well," and she slept "good." She denies SI/HI and hallucinations of any kind. The patient says her appetite has been "okay." Reason for continued inpatient treatment: The patient's mentation has improved, but she continues to be disorganized at times. Will continue to stabilize and plan for discharge. REVIEW OF SYSTEMS Constitutional: Negative for weight loss ENT: Negative for stridor Respiratory: Negative for cough or hemoptysis All other systems reviewed and are negative MENTAL STATUS EXAMINATION General Appearance: Dressed appropriately. Behavior: calm and cooperative Mood: "pretty good" Affect: Congruent with stated mood Speech: Normal tone and pace Thought Process: goal directed this morning, but disorganized at times Suicidal Ideation: Denies Homicidal Ideation: Denies Hallucinations: Denies Delusions: None elicited Insight and Judgment: Limited Memory/Cognition: Limited ASSESSMENT Schizoaffective Disorder Treatment Plan Patient will be admitted for inpatient psychiatric evaluation, medication adjustment and close monitoring The patient's behavior, mood, sleep and appetite will be closely monitored. Patient will be enrolled in individual and group therapeutic sessions and encouraged to attend. Patient will be provided with a safe and structured environment. Patient's physical health needs will be addressed by the Hospitalist. Hospitalist Consulted Labs including CBC, CMP, Lipid profile and Hemoglobin A1C ordered Social Assessment will be completed and the General Machinist will work with patient and family to ensure a suitable and safe disposition Medication adjustment will be made as clinically indicated Usual Wellness Restorationist/Preservation: Increase Risperidone 1mg po BID yesterday No changes made today Estimated period of time patient will need to remain in the hospital: [2] Plan for post-hospital care: [Outpatient ] Medications and Allergies Allergies Allergy/AdvReac Type Severity Reaction Status Date / Time No Known Allergies Allergy Verified 07/17/19 13:24 Home Medications Medication Instructions Recorded Confirmed Last Taken Type Amlodipine Besylate [Norvasc] 5 mg PO DAILY #30 tablet 07/17/19 08/08/19 Unknown Rx Nitrofurantoin [place]/M-Cryst 100 mg PO Q12HR #14 capsule 08/07/19 08/08/19 Unknown Rx [Macrobid CAP] Active Meds: Active Medications Amlodipine Besylate (Amlodipine) 5 mg PO DAILY [facility] Last Admin: 08/11/19 09:42 Dose: 5 mg Documented by: Divalproex Sodium (Depakote Dr) 250 mg PO BID [facility] Last Admin: 08/11/19 21:07 Dose: 250 mg Documented by: Haloperidol Lactate (Haldol) 2 mg IM Q6H PRN PRN Reason: Agitation Lorazepam (Ativan) 1 mg IM Q6H PRN PRN Reason: Agitation Melatonin (Melatonin) 5 mg PO QHS PRN PRN Reason: Sleep Last Admin: 08/09/19 21:27 Dose: 5 mg Documented by: Nitrofurantoin Macrocrystals (Macrobid) 100 mg PO Q12HR [facility] Stop: 08/14/19 22:01 Last Admin: 08/11/19 21:07 Dose: 100 mg Documented by: Risperidone (Risperdal) 2 mg PO BID [facility] Last Admin: 08/11/19 21:07 Dose: 2 mg Documented by: Trazodone HCl (Desyrel) 50 mg PO QHS [facility] Last Admin: 08/11/19 21:07 Dose: 50 mg Documented by: Results - Results Labs/Vitals: Laboratory Last Values WBC 8.1 K/mm3 (4.5-11.0) 08/09/19 05:41 RBC 4.30 M/mm3 (3.65-5.03) 08/09/19 05:41 Hgb 12.3 gm/dl (10.1-14.3) 08/09/19 05:41 Hct 38.4 % (30.3-42.9) 08/09/19 05:41 MCV 89 fl (79-97) 08/09/19 05:41 MCH 29 pg (28-32) 08/09/19 05:41 MCHC 32 % (30-34) 08/09/19 05:41 RDW 15.3 % (13.2-15.2) H 08/09/19 05:41 Plt Count 266 K/mm3 (140-440) 08/09/19 05:41 Lymph % (Auto) 34.9 % (13.4-35.0) 08/09/19 05:41 [place] % (Auto) 13.6 % (0.0-7.3) H 08/09/19 05:41 Eos % (Auto) 1.0 % (0.0-4.3) 08/09/19 05:41 Baso % (Auto) 0.4 % (0.0-1.8) 08/09/19 05:41 Lymph # 2.8 K/mm3 (1.2-5.4) 08/09/19 05:41 [place] # 1.1 K/mm3 (0.0-0.8) H 08/09/19 05:41 Eos # 0.1 K/mm3 (0.0-0.4) 08/09/19 05:41 Baso # 0.0 K/mm3 (0.0-0.1) 08/09/19 05:41 Seg Neutrophils % 50.1 % (40.0-70.0) 08/09/19 05:41 Seg Neutrophils # 4.0 K/mm3 (1.8-7.7) 08/09/19 05:41 Sodium 140 mmol/L (137-145) 08/09/19 05:41 Potassium 3.9 mmol/L (3.6-5.0) 08/09/19 05:41 Chloride 104.0 mmol/L (98-107) 08/09/19 05:41 Carbon Dioxide 25 mmol/L (22-30) 08/09/19 05:41 Anion Gap 15 mmol/L 08/09/19 05:41 BUN 12 mg/dL (7-17) 08/09/19 05:41 Creatinine 0.7 mg/dL (0.7-1.2) 08/09/19 05:41 Estimated GFR > 60 ml/min 08/09/19 05:41 BUN/Creatinine Ratio 17 % 08/09/19 05:41 Glucose 106 mg/dL (65-100) H 08/09/19 05:41 POC Glucose 112 (70-105) H 08/08/19 00:18 Hemoglobin A1c 5.7 % (4-6) 08/07/19 13:43 Calcium 9.9 mg/dL (8.4-10.2) 08/09/19 05:41 Total Bilirubin 0.40 mg/dL (0.1-1.2) 08/09/19 05:41 AST 16 units/L (5-40) 08/09/19 05:41 ALT 12 units/L (7-56) 08/09/19 05:41 Alkaline Phosphatase 91 units/L (35-129) 08/09/19 05:41 Total Protein 6.7 g/dL (6.3-8.2) 08/09/19 05:41 Albumin 3.7 g/dL (3.9-5) L 08/09/19 05:41 Albumin/Globulin Ratio 1.2 % 08/09/19 05:41 Triglycerides 33 mg/dL (2-149) 08/09/19 05:41 Cholesterol 115 mg/dL (50-199) 08/09/19 05:41 LDL Cholesterol Direct 49 mg/dL (50-130) L 08/09/19 05:41 HDL Cholesterol 65 mg/dL (40-59) H 08/09/19 05:41 Cholesterol/HDL Ratio 1.76 % 08/09/19 05:41 TSH 1.340 mlU/mL (0.270-4.200) 08/09/19 05:41 Urine Color Yellow (Yellow) 08/07/19 21:20 Urine Turbidity Clear (Clear) 08/07/19 21:20 Urine pH 6.0 (5.0-7.0) 08/07/19 21:20 Ur Specific [place] 1.013 (1.003-1.030) 08/07/19 21:20 Urine Protein <15 mg/dl mg/dL (Negative) 08/07/19 21:20 Urine Glucose (UA) Neg mg/dL (Negative) 08/07/19 21:20 Urine Ketones Neg mg/dL (Negative) 08/07/19 21:20 Urine Blood Neg (Negative) 08/07/19 21:20 Urine Nitrite Neg (Negative) 08/07/19 21:20 Urine Bilirubin Neg (Negative) 08/07/19 21:20 Urine Urobilinogen 2.0 mg/dL (<2.0) 08/07/19 21:20 Ur Leukocyte Esterase Mod (Negative) 08/07/19 21:20 Urine WBC (Auto) 23.0 /HPF (0.0-6.0) H 08/07/19 21:20 Urine RBC (Auto) 2.0 /HPF (0.0-6.0) 08/07/19 21:20 U Epithel Cells (Auto) < 1.0 /HPF (0-13.0) 08/07/19 21:20 Urine Mucus Few /HPF 08/07/19 21:20 Last Vital Signs Temp 98.5 F 08/11/19 22:00 Pulse 72 08/11/19 22:00 Resp 18 08/11/19 22:00 BP 133/65 08/11/19 22:00 Pulse Ox 96 08/11/19 22:00
[2019-08-12] MEDS: DIVALPROEX DR 250 MG TAB PO SCH ×2 (11:56→22:02)
[2019-08-12] MEDS: NITROFURANTOIN MONOHYD/M-CRYST 100 MG CAP PO SCH ×2 (11:56→22:02)
[2019-08-12] MEDS: amLODIPine 5 MG TAB PO SCH (11:57)
[2019-08-12] MEDS: risperiDONE 1 MG TAB PO SCH ×2 (11:57→22:02)
--- NOTE | 2019-08-12 20:37 | Progress Note ---
Assessment and Plan - Patient Problems (1) Hypertension Current Visit: Yes Status: Acute Qualifiers: Hypertension type: essential hypertension Qualified Code(s): I10 - Essential (primary) hypertension Plan to address problem: Monitor blood pressure every shift, continue medical management. History Interval history: 69 YO Female with HTN admitted to [facility] for psychiatric stabilization. Patient convalesced well overnight. No reported nursing events. Patient denies fever, chills, chest pain, palpitations, no reported trauma. Patient is cooperative with exam and interview Hospitalist Physical - Constitutional Vitals: Temp Pulse Resp BP Pulse Ox 97.7 F 69 18 139/72 97 08/12/19 10:15 08/12/19 11:57 08/11/19 22:00 08/12/19 11:57 08/12/19 10:15 General appearance: Present: no acute distress, obese - EENT Eyes: Present: PERRL ENT: hearing intact - Neck Neck: Present: supple - Respiratory Respiratory: bilateral: CTA - Cardiovascular Rhythm: regular Heart Sounds: Present: S1 & S2 - Extremities Extremities: no ischemia - Abdominal General gastrointestinal: soft, non-tender, non-distended - Integumentary Integumentary: Present: clear, warm, erythema - Psychiatric Psychiatric: appropriate mood/affect, cooperative - Neurologic Neurologic: CNII-XII intact Results - Labs CBC & Chem 7: 08/09/19 05:41 08/09/19 05:41 Labs: Laboratory Last Values WBC 8.1 K/mm3 (4.5-11.0) 08/09/19 05:41 RBC 4.30 M/mm3 (3.65-5.03) 08/09/19 05:41 Hgb 12.3 gm/dl (10.1-14.3) 08/09/19 05:41 Hct 38.4 % (30.3-42.9) 08/09/19 05:41 MCV 89 fl (79-97) 08/09/19 05:41 MCH 29 pg (28-32) 08/09/19 05:41 MCHC 32 % (30-34) 08/09/19 05:41 RDW 15.3 % (13.2-15.2) H 08/09/19 05:41 Plt Count 266 K/mm3 (140-440) 08/09/19 05:41 Lymph % (Auto) 34.9 % (13.4-35.0) 08/09/19 05:41 [place] % (Auto) 13.6 % (0.0-7.3) H 08/09/19 05:41 Eos % (Auto) 1.0 % (0.0-4.3) 08/09/19 05:41 Baso % (Auto) 0.4 % (0.0-1.8) 08/09/19 05:41 Lymph # 2.8 K/mm3 (1.2-5.4) 08/09/19 05:41 [place] # 1.1 K/mm3 (0.0-0.8) H 08/09/19 05:41 Eos # 0.1 K/mm3 (0.0-0.4) 08/09/19 05:41 Baso # 0.0 K/mm3 (0.0-0.1) 08/09/19 05:41 Seg Neutrophils % 50.1 % (40.0-70.0) 08/09/19 05:41 Seg Neutrophils # 4.0 K/mm3 (1.8-7.7) 08/09/19 05:41 Sodium 140 mmol/L (137-145) 08/09/19 05:41 Potassium 3.9 mmol/L (3.6-5.0) 08/09/19 05:41 Chloride 104.0 mmol/L (98-107) 08/09/19 05:41 Carbon Dioxide 25 mmol/L (22-30) 08/09/19 05:41 Anion Gap 15 mmol/L 08/09/19 05:41 BUN 12 mg/dL (7-17) 08/09/19 05:41 Creatinine 0.7 mg/dL (0.7-1.2) 08/09/19 05:41 Estimated GFR > 60 ml/min 08/09/19 05:41 BUN/Creatinine Ratio 17 % 08/09/19 05:41 Glucose 106 mg/dL (65-100) H 08/09/19 05:41 POC Glucose 112 (70-105) H 08/08/19 00:18 Hemoglobin A1c 5.7 % (4-6) 08/07/19 13:43 Calcium 9.9 mg/dL (8.4-10.2) 08/09/19 05:41 Total Bilirubin 0.40 mg/dL (0.1-1.2) 08/09/19 05:41 AST 16 units/L (5-40) 08/09/19 05:41 ALT 12 units/L (7-56) 08/09/19 05:41 Alkaline Phosphatase 91 units/L (35-129) 08/09/19 05:41 Total Protein 6.7 g/dL (6.3-8.2) 08/09/19 05:41 Albumin 3.7 g/dL (3.9-5) L 08/09/19 05:41 Albumin/Globulin Ratio 1.2 % 08/09/19 05:41 Triglycerides 33 mg/dL (2-149) 08/09/19 05:41 Cholesterol 115 mg/dL (50-199) 08/09/19 05:41 LDL Cholesterol Direct 49 mg/dL (50-130) L 08/09/19 05:41 HDL Cholesterol 65 mg/dL (40-59) H 08/09/19 05:41 Cholesterol/HDL Ratio 1.76 % 08/09/19 05:41 TSH 1.340 mlU/mL (0.270-4.200) 08/09/19 05:41 Urine Color Yellow (Yellow) 08/07/19 21:20 Urine Turbidity Clear (Clear) 08/07/19 21:20 Urine pH 6.0 (5.0-7.0) 08/07/19 21:20 Ur Specific [place] 1.013 (1.003-1.030) 08/07/19 21:20 Urine Protein <15 mg/dl mg/dL (Negative) 08/07/19 21:20 Urine Glucose (UA) Neg mg/dL (Negative) 08/07/19 21:20 Urine Ketones Neg mg/dL (Negative) 08/07/19 21:20 Urine Blood Neg (Negative) 08/07/19 21:20 Urine Nitrite Neg (Negative) 08/07/19 21:20 Urine Bilirubin Neg (Negative) 08/07/19 21:20 Urine Urobilinogen 2.0 mg/dL (<2.0) 08/07/19 21:20 Ur Leukocyte Esterase Mod (Negative) 08/07/19 21:20 Urine WBC (Auto) 23.0 /HPF (0.0-6.0) H 08/07/19 21:20 Urine RBC (Auto) 2.0 /HPF (0.0-6.0) 08/07/19 21:20 U Epithel Cells (Auto) < 1.0 /HPF (0-13.0) 08/07/19 21:20 Urine Mucus Few /HPF 08/07/19 21:20 García/IV: Voiding Method Toilet Active Medications - Current Medications Current Medications: Generic Name Dose Route Start Last Admin Trade Name Freq PRN Reason Stop Dose Admin Amlodipine Besylate 5 mg 08/08/19 14:00 08/12/19 11:57 Amlodipine PO 5 mg DAILY [facility] Administration Divalproex Sodium 250 mg 08/10/19 10:00 08/12/19 11:[address] PO 250 mg BID [facility] Administration Haloperidol Lactate 2 mg 08/08/19 21:10 Haldol IM Q6H PRN Agitation Lorazepam 1 mg 08/09/19 09:00 Ativan IM Q6H PRN Agitation Melatonin 5 mg 08/08/19 22:00 08/09/19 21:27 Melatonin PO 5 mg QHS PRN Administration Sleep Nitrofurantoin Macrocrystals 100 mg 08/08/19 14:30 08/12/19 11:56 Macrobid PO 08/14/19 22:01 100 mg Q12HR [facility] Administration Risperidone 2 mg 08/11/19 10:00 08/12/19 11:57 Risperdal PO 2 mg BID [facility] Administration Trazodone HCl 50 mg 08/08/19 22:00 08/11/19 21:07 Desyrel PO 50 mg QHS [facility] Administration
[2019-08-12] MEDS: traZODone 50 MG TAB PO SCH (22:02)
[2019-08-12] MEDS: MELATONIN 5 MG TAB PO PRN (22:02)
--- NOTE | 2019-08-13 08:19 | Progress Note ---
Subjective Date of service: 08/13/19 Principal diagnosis: Schizoaffective Disorder Subjective Comment: The patient's medical record was reviewed and the patient's progress was discussed with the nursing staff. The nurse note states the patient is alert and oriented to person, bizarre, disorganized thought process, poor hygiene, urinate on self and all over her room, room smells of urine and she smells of urine. The patient is delusional; she thinks she's . During my interview with the patient this morning, she is sitting in the dayroom with a pillowcase around her head. She is easily irritable. She states her mood is "so-so." When asking why did she have the pillow case on her head, the patient snaps, "don't worry about what I got on m head. Don't worry about that. You need to worry about your on head. I don't understand why everybody is worried about my head." She says she slept "good last night." She denies SI/HI or hallucinations of any kind. The patient states, "I my hair, purple, blues for the republican." Reason for continued inpatient treatment: The patient's mentation has improved, but she continues to be disorganized and delusional at times. Will continue to stabilize and plan for discharge. REVIEW OF SYSTEMS Constitutional: Negative for weight loss ENT: Negative for stridor Respiratory: Negative for cough or hemoptysis All other systems reviewed and are negative MENTAL STATUS EXAMINATION General Appearance: Dressed appropriately. Behavior: Easily irritable, cooperative Mood: "so-so" Affect: Congruent with stated mood Speech: Normal tone and pace Thought Process: disorganized at times Suicidal Ideation: Denies Homicidal Ideation: Denies Hallucinations: Denies Delusions: None elicited Insight and Judgment: Limited Memory/Cognition: Limited ASSESSMENT Schizoaffective Disorder Treatment Plan Patient will be admitted for inpatient psychiatric evaluation, medication adjustment and close monitoring The patient's behavior, mood, sleep and appetite will be closely monitored. Patient will be enrolled in individual and group therapeutic sessions and encouraged to attend. Patient will be provided with a safe and structured environment. Patient's physical health needs will be addressed by the Hospitalist. Hospitalist Consulted Labs including CBC, CMP, Lipid profile and Hemoglobin A1C ordered Social Assessment will be completed and the Animal Humane Agent Supervisor will work with patient and family to ensure a suitable and safe disposition Medication adjustment will be made as clinically indicated Usual Wellness Confucianism/Preservation: Increase Depakote 500mg po BID Estimated period of time patient will need to remain in the hospital: [2] Plan for post-hospital care: [Outpatient ] Medications and Allergies Allergies Allergy/AdvReac Type Severity Reaction Status Date / Time No Known Allergies Allergy Verified 07/17/19 13:24 Home Medications Medication Instructions Recorded Confirmed Last Taken Type Amlodipine Besylate [Norvasc] 5 mg PO DAILY #30 tablet 07/17/19 08/08/19 Unknown Rx Nitrofurantoin [place]/M-Cryst 100 mg PO Q12HR #14 capsule 08/07/19 08/08/19 Unknown Rx [Macrobid CAP] Active Meds: Active Medications Amlodipine Besylate (Amlodipine) 5 mg PO DAILY [facility] Last Admin: 08/12/19 11:57 Dose: 5 mg Documented by: Divalproex Sodium (Depakote Dr) 250 mg PO BID [facility] Last Admin: 08/12/19 22:02 Dose: 250 mg Documented by: Haloperidol Lactate (Haldol) 2 mg IM Q6H PRN PRN Reason: Agitation Lorazepam (Ativan) 1 mg IM Q6H PRN PRN Reason: Agitation Melatonin (Melatonin) 5 mg PO QHS PRN PRN Reason: Sleep Last Admin: 08/12/19 22:02 Dose: 5 mg Documented by: Nitrofurantoin Macrocrystals (Macrobid) 100 mg PO Q12HR [facility] Stop: 08/14/19 22:01 Last Admin: 08/12/19 22:02 Dose: 100 mg Documented by: Risperidone (Risperdal) 2 mg PO BID [facility] Last Admin: 08/12/19 22:02 Dose: 2 mg Documented by: Trazodone HCl (Desyrel) 50 mg PO QHS [facility] Last Admin: 08/12/19 22:02 Dose: 50 mg Documented by: Results - Results Labs/Vitals: Laboratory Last Values WBC 8.1 K/mm3 (4.5-11.0) 08/09/19 05:41 RBC 4.30 M/mm3 (3.65-5.03) 08/09/19 05:41 Hgb 12.3 gm/dl (10.1-14.3) 08/09/19 05:41 Hct 38.4 % (30.3-42.9) 08/09/19 05:41 MCV 89 fl (79-97) 08/09/19 05:41 MCH 29 pg (28-32) 08/09/19 05:41 MCHC 32 % (30-34) 08/09/19 05:41 RDW 15.3 % (13.2-15.2) H 08/09/19 05:41 Plt Count 266 K/mm3 (140-440) 08/09/19 05:41 Lymph % (Auto) 34.9 % (13.4-35.0) 08/09/19 05:41 [place] % (Auto) 13.6 % (0.0-7.3) H 08/09/19 05:41 Eos % (Auto) 1.0 % (0.0-4.3) 08/09/19 05:41 Baso % (Auto) 0.4 % (0.0-1.8) 08/09/19 05:41 Lymph # 2.8 K/mm3 (1.2-5.4) 08/09/19 05:41 [place] # 1.1 K/mm3 (0.0-0.8) H 08/09/19 05:41 Eos # 0.1 K/mm3 (0.0-0.4) 08/09/19 05:41 Baso # 0.0 K/mm3 (0.0-0.1) 08/09/19 05:41 Seg Neutrophils % 50.1 % (40.0-70.0) 08/09/19 05:41 Seg Neutrophils # 4.0 K/mm3 (1.8-7.7) 08/09/19 05:41 Sodium 140 mmol/L (137-145) 08/09/19 05:41 Potassium 3.9 mmol/L (3.6-5.0) 08/09/19 05:41 Chloride 104.0 mmol/L (98-107) 08/09/19 05:41 Carbon Dioxide 25 mmol/L (22-30) 08/09/19 05:41 Anion Gap 15 mmol/L 08/09/19 05:41 BUN 12 mg/dL (7-17) 08/09/19 05:41 Creatinine 0.7 mg/dL (0.7-1.2) 08/09/19 05:41 Estimated GFR > 60 ml/min 08/09/19 05:41 BUN/Creatinine Ratio 17 % 08/09/19 05:41 Glucose 106 mg/dL (65-100) H 08/09/19 05:41 POC Glucose 112 (70-105) H 08/08/19 00:18 Hemoglobin A1c 5.7 % (4-6) 08/07/19 13:43 Calcium 9.9 mg/dL (8.4-10.2) 08/09/19 05:41 Total Bilirubin 0.40 mg/dL (0.1-1.2) 08/09/19 05:41 AST 16 units/L (5-40) 08/09/19 05:41 ALT 12 units/L (7-56) 08/09/19 05:41 Alkaline Phosphatase 91 units/L (35-129) 08/09/19 05:41 Total Protein 6.7 g/dL (6.3-8.2) 08/09/19 05:41 Albumin 3.7 g/dL (3.9-5) L 08/09/19 05:41 Albumin/Globulin Ratio 1.2 % 08/09/19 05:41 Triglycerides 33 mg/dL (2-149) 08/09/19 05:41 Cholesterol 115 mg/dL (50-199) 08/09/19 05:41 LDL Cholesterol Direct 49 mg/dL (50-130) L 08/09/19 05:41 HDL Cholesterol 65 mg/dL (40-59) H 08/09/19 05:41 Cholesterol/HDL Ratio 1.76 % 08/09/19 05:41 TSH 1.340 mlU/mL (0.270-4.200) 08/09/19 05:41 Urine Color Yellow (Yellow) 08/07/19 21:20 Urine Turbidity Clear (Clear) 08/07/19 21:20 Urine pH 6.0 (5.0-7.0) 08/07/19 21:20 Ur Specific [place] 1.013 (1.003-1.030) 08/07/19 21:20 Urine Protein <15 mg/dl mg/dL (Negative) 08/07/19 21:20 Urine Glucose (UA) Neg mg/dL (Negative) 08/07/19 21:20 Urine Ketones Neg mg/dL (Negative) 08/07/19 21:20 Urine Blood Neg (Negative) 08/07/19 21:20 Urine Nitrite Neg (Negative) 08/07/19 21:20 Urine Bilirubin Neg (Negative) 08/07/19 21:20 Urine Urobilinogen 2.0 mg/dL (<2.0) 08/07/19 21:20 Ur Leukocyte Esterase Mod (Negative) 08/07/19 21:20 Urine WBC (Auto) 23.0 /HPF (0.0-6.0) H 08/07/19 21:20 Urine RBC (Auto) 2.0 /HPF (0.0-6.0) 08/07/19 21:20 U Epithel Cells (Auto) < 1.0 /HPF (0-13.0) 08/07/19 21:20 Urine Mucus Few /HPF 08/07/19 21:20 Last Vital Signs Temp 98.5 F 08/12/19 19:50 Pulse 77 08/12/19 19:50 Resp 18 08/12/19 19:50 BP 137/72 08/12/19 19:50 Pulse Ox 95 08/12/19 19:50
[2019-08-13] MEDS: DIVALPROEX DR 500 MG TAB PO SCH ×3 (15:31→22:21)
[2019-08-13] MEDS: risperiDONE 1 MG TAB PO SCH ×3 (15:31→22:19)
[2019-08-13] MEDS: NITROFURANTOIN MONOHYD/M-CRYST 100 MG CAP PO SCH ×3 (15:31→22:19)
[2019-08-13] MEDS: amLODIPine 5 MG TAB PO SCH ×2 (15:31→15:42)
[2019-08-13] MEDS: traZODone 50 MG TAB PO SCH (22:19)
--- NOTE | 2019-08-14 09:03 | Progress Note ---
Subjective Date of service: 08/14/19 Principal diagnosis: Schizoaffective Disorder Subjective Comment: Nurse note: Pt finally agreed to take am meds, she attended to her adls with prompting. Still delusional remained in her room until afternoon stating "I getting my hear done." Still has bizarre behavior wearing disposable underwear on her head. Pt is redirectable. No behavior issues. The patient's medical record was reviewed and the patient's progress was discussed with the nursing staff. The nurse note states the patient is alert and oriented to person, bizarre, disorganized thought process, poor hygiene, urinate on self and all over her room, room smells of urine and she smells of urine. The patient is delusional; she thinks she's . Psych Progress HPI Patient seen in breakfast room, awake and talkative. Patient states she was discharged from Counts include 234 beds at the [facility] service before, about a year ago. Pt states she does not know what date it is, but was able to look at the calender and correctly say the date. She reports sleeping well and compliance with medications and says he rgoal is to get discharged from here back to her residence. Reason for continued inpatient treatment: The patient's mentation has improved, was informed by previous provider, pt is approaching base line. WIll observe for continued mood improvement and stability and plan to discharge. REVIEW OF SYSTEMS Constitutional: Negative for weight loss ENT: Negative for stridor Respiratory: Negative for cough or hemoptysis All other systems reviewed and are negative MENTAL STATUS EXAMINATION General Appearance: Dressed appropriately. Behavior: Easily irritable, cooperative Mood: "so-so" Affect: Congruent with stated mood Speech: Normal tone and pace Thought Process: inchorent, disorganized Suicidal Ideation: Denies Homicidal Ideation: Denies Hallucinations: Denies Delusions: None elicited Insight and Judgment: Limited Memory/Cognition: Limited ASSESSMENT Schizoaffective Disorder Treatment Plan Patient will be admitted for inpatient psychiatric evaluation, medication adjustment and close monitoring The patient's behavior, mood, sleep and appetite will be closely monitored. Patient will be enrolled in individual and group therapeutic sessions and encouraged to attend. Patient will be provided with a safe and structured environment. Patient's physical health needs will be addressed by the Hospitalist. Hospitalist Consulted Labs including CBC, CMP, Lipid profile and Hemoglobin A1C ordered Social Assessment will be completed and the Lightning Protection Installer will work with patient and family to ensure a suitable and safe disposition Medication adjustment will be made as clinically indicated Usual Wellness Moravian/Preservation: Increase Depakote 500mg po BID Estimated period of time patient will need to remain in the hospital: [2] Plan for post-hospital care: [Outpatient ] Medications and Allergies Allergies Allergy/AdvReac Type Severity Reaction Status Date / Time No Known Allergies Allergy Verified 07/17/19 13:24 Home Medications Medication Instructions Recorded Confirmed Last Taken Type Amlodipine Besylate [Norvasc] 5 mg PO DAILY #30 tablet 07/17/19 08/08/[address] [Depakote Dr] 500 mg PO BID #60 tablet 08/14/19 Unknown Rx risperiDONE [RisperDAL] 2 mg PO BID #60 tablet 08/14/19 Unknown Rx Active Meds: Active Medications Amlodipine Besylate (Amlodipine) 5 mg PO DAILY [facility] Last Admin: 08/13/19 15:42 Dose: 5 mg Documented by: Divalproex Sodium (Depakote Dr) 500 mg PO BID [facility] Last Admin: 08/13/19 22:21 Dose: 500 mg Documented by: Haloperidol Lactate (Haldol) 2 mg IM Q6H PRN PRN Reason: Agitation Lorazepam (Ativan) 1 mg IM Q6H PRN PRN Reason: Agitation Melatonin (Melatonin) 5 mg PO QHS PRN PRN Reason: Sleep Last Admin: 08/12/19 22:02 Dose: 5 mg Documented by: Nitrofurantoin Macrocrystals (Macrobid) 100 mg PO Q12HR [facility] Stop: 08/14/19 22:01 Last Admin: 08/13/19 22:19 Dose: 100 mg Documented by: Risperidone (Risperdal) 2 mg PO BID [facility] Last Admin: 08/13/19 22:19 Dose: 2 mg Documented by: Trazodone HCl (Desyrel) 50 mg PO QHS [facility] Last Admin: 08/13/19 22:19 Dose: 50 mg Documented by: Results - Results Labs/Vitals: Laboratory Last Values WBC 8.1 K/mm3 (4.5-11.0) 08/09/19 05:41 RBC 4.30 M/mm3 (3.65-5.03) 08/09/19 05:41 Hgb 12.3 gm/dl (10.1-14.3) 08/09/19 05:41 Hct 38.4 % (30.3-42.9) 08/09/19 05:41 MCV 89 fl (79-97) 08/09/19 05:41 MCH 29 pg (28-32) 08/09/19 05:41 MCHC 32 % (30-34) 08/09/19 05:41 RDW 15.3 % (13.2-15.2) H 08/09/19 05:41 Plt Count 266 K/mm3 (140-440) 08/09/19 05:41 Lymph % (Auto) 34.9 % (13.4-35.0) 08/09/19 05:41 [place] % (Auto) 13.6 % (0.0-7.3) H 08/09/19 05:41 Eos % (Auto) 1.0 % (0.0-4.3) 08/09/19 05:41 Baso % (Auto) 0.4 % (0.0-1.8) 08/09/19 05:41 Lymph # 2.8 K/mm3 (1.2-5.4) 08/09/19 05:41 [place] # 1.1 K/mm3 (0.0-0.8) H 08/09/19 05:41 Eos # 0.1 K/mm3 (0.0-0.4) 08/09/19 05:41 Baso # 0.0 K/mm3 (0.0-0.1) 08/09/19 05:41 Seg Neutrophils % 50.1 % (40.0-70.0) 08/09/19 05:41 Seg Neutrophils # 4.0 K/mm3 (1.8-7.7) 08/09/19 05:41 Sodium 140 mmol/L (137-145) 08/09/19 05:41 Potassium 3.9 mmol/L (3.6-5.0) 08/09/19 05:41 Chloride 104.0 mmol/L (98-107) 08/09/19 05:41 Carbon Dioxide 25 mmol/L (22-30) 08/09/19 05:41 Anion Gap 15 mmol/L 08/09/19 05:41 BUN 12 mg/dL (7-17) 08/09/19 05:41 Creatinine 0.7 mg/dL (0.7-1.2) 08/09/19 05:41 Estimated GFR > 60 ml/min 08/09/19 05:41 BUN/Creatinine Ratio 17 % 08/09/19 05:41 Glucose 106 mg/dL (65-100) H 08/09/19 05:41 POC Glucose 112 (70-105) H 08/08/19 00:18 Hemoglobin A1c 5.7 % (4-6) 08/07/19 13:43 Calcium 9.9 mg/dL (8.4-10.2) 08/09/19 05:41 Total Bilirubin 0.40 mg/dL (0.1-1.2) 08/09/19 05:41 AST 16 units/L (5-40) 08/09/19 05:41 ALT 12 units/L (7-56) 08/09/19 05:41 Alkaline Phosphatase 91 units/L (35-129) 08/09/19 05:41 Total Protein 6.7 g/dL (6.3-8.2) 08/09/19 05:41 Albumin 3.7 g/dL (3.9-5) L 08/09/19 05:41 Albumin/Globulin Ratio 1.2 % 08/09/19 05:41 Triglycerides 33 mg/dL (2-149) 08/09/19 05:41 Cholesterol 115 mg/dL (50-199) 08/09/19 05:41 LDL Cholesterol Direct 49 mg/dL (50-130) L 08/09/19 05:41 HDL Cholesterol 65 mg/dL (40-59) H 08/09/19 05:41 Cholesterol/HDL Ratio 1.76 % 08/09/19 05:41 TSH 1.340 mlU/mL (0.270-4.200) 08/09/19 05:41 Urine Color Yellow (Yellow) 08/07/19 21:20 Urine Turbidity Clear (Clear) 08/07/19 21:20 Urine pH 6.0 (5.0-7.0) 08/07/19 21:20 Ur Specific [place] 1.013 (1.003-1.030) 08/07/19 21:20 Urine Protein <15 mg/dl mg/dL (Negative) 08/07/19 21:20 Urine Glucose (UA) Neg mg/dL (Negative) 08/07/19 21:20 Urine Ketones Neg mg/dL (Negative) 08/07/19 21:20 Urine Blood Neg (Negative) 08/07/19 21:20 Urine Nitrite Neg (Negative) 08/07/19 21:20 Urine Bilirubin Neg (Negative) 08/07/19 21:20 Urine Urobilinogen 2.0 mg/dL (<2.0) 08/07/19 21:20 Ur Leukocyte Esterase Mod (Negative) 08/07/19 21:20 Urine WBC (Auto) 23.0 /HPF (0.0-6.0) H 08/07/19 21:20 Urine RBC (Auto) 2.0 /HPF (0.0-6.0) 08/07/19 21:20 U Epithel Cells (Auto) < 1.0 /HPF (0-13.0) 08/07/19 21:20 Urine Mucus Few /HPF 08/07/19 21:20 Last Vital Signs Temp 97.9 F 08/14/19 08:39 Pulse 90 08/14/19 08:39 Resp 18 08/14/19 08:39 BP 150/72 08/14/19 08:39 Pulse Ox 96 08/14/19 08:39
--- NOTE | 2019-08-14 09:51 | XRay Report ---
CHEST 1 VIEW INDICATION: COUGH, TB. COMPARISON: None. FINDINGS: Support devices: None. Heart: Normal. Lungs/Pleura: No acute pulmonary or pleural findings. Aortic arch appears ectatic. IMPRESSION: 1. No consolidation or effusion. 2. Aortic arch appears aneurysmal/ectatic. Signer Name: Jarred Lovelace MD Signed: 08/14/2019 9:47 AM Workstation Name: [id number]
[2019-08-14] MEDS: NITROFURANTOIN MONOHYD/M-CRYST 100 MG CAP PO SCH ×2 (10:04→21:02)
[2019-08-14] MEDS: amLODIPine 5 MG TAB PO SCH (10:04)
[2019-08-14] MEDS: DIVALPROEX DR 500 MG TAB PO SCH ×2 (10:04→21:01)
[2019-08-14] MEDS: risperiDONE 1 MG TAB PO SCH ×2 (10:05→21:02)
--- NOTE | 2019-08-14 20:44 | Discharge Summary ---
Providers - Providers Date of Admission: 08/07/19 23:38 Date of discharge: 08/14/19 Attending physician: CHONG BENÍTEZ MD 08/07/19 19:13 Consult to Physician [CONS] Routine Comment: Consulting Provider: VEENA NATARAJAN Physician Instructions: Reason For Exam: manage medical conditions Primary care physician: MORTAR MIXER OPERATOR Hospitalization Reason for admission: Danger to self Condition: Good Hospital course: The patient was provided inpatient psychiatric treatment with safe and supportive environment, group/individual therapy, psychiatric medication, medication adjustment, adverse effect monitor, medical evaluation, medical treatment, social service assessment, social support meeting, placement ass essment and psycho-education. The patients mood, cognition, behavior, motivation, compliance to treatment and appreciation on family/social support are improved and stabilized. At the time of discharge, the patient had no suicidal ideas, no homicidal ideas, no aggressive thoughts, no endangering behavior and no debilitating adverse effects. Disposition: DC-30 STILL A PATIENT Allergies/Adverse Reactions: Allergies No Known Allergies Allergy (Verified 07/17/19 13:24) Vital Signs: Last Vital Signs Temp 97.9 F 08/14/19 08:39 Pulse 90 08/14/19 10:04 Resp 18 08/14/19 08:39 BP 150/72 08/14/19 10:04 Pulse Ox 96 08/14/19 08:39 Last Lab: Laboratory Last Values WBC 8.1 K/mm3 (4.5-11.0) 08/09/19 05:41 RBC 4.30 M/mm3 (3.65-5.03) 08/09/19 05:41 Hgb 12.3 gm/dl (10.1-14.3) 08/09/19 05:41 Hct 38.4 % (30.3-42.9) 08/09/19 05:41 MCV 89 fl (79-97) 08/09/19 05:41 MCH 29 pg (28-32) 08/09/19 05:41 MCHC 32 % (30-34) 08/09/19 05:41 RDW 15.3 % (13.2-15.2) H 08/09/19 05:41 Plt Count 266 K/mm3 (140-440) 08/09/19 05:41 Lymph % (Auto) 34.9 % (13.4-35.0) 08/09/19 05:41 [place] % (Auto) 13.6 % (0.0-7.3) H 08/09/19 05:41 Eos % (Auto) 1.0 % (0.0-4.3) 08/09/19 05:41 Baso % (Auto) 0.4 % (0.0-1.8) 08/09/19 05:41 Lymph # 2.8 K/mm3 (1.2-5.4) 08/09/19 05:41 [place] # 1.1 K/mm3 (0.0-0.8) H 08/09/19 05:41 Eos # 0.1 K/mm3 (0.0-0.4) 08/09/19 05:41 Baso # 0.0 K/mm3 (0.0-0.1) 08/09/19 05:41 Seg Neutrophils % 50.1 % (40.0-70.0) 08/09/19 05:41 Seg Neutrophils # 4.0 K/mm3 (1.8-7.7) 08/09/19 05:41 Sodium 140 mmol/L (137-145) 08/09/19 05:41 Potassium 3.9 mmol/L (3.6-5.0) 08/09/19 05:41 Chloride 104.0 mmol/L (98-107) 08/09/19 05:41 Carbon Dioxide 25 mmol/L (22-30) 08/09/19 05:41 Anion Gap 15 mmol/L 08/09/19 05:41 BUN 12 mg/dL (7-17) 08/09/19 05:41 Creatinine 0.7 mg/dL (0.7-1.2) 08/09/19 05:41 Estimated GFR > 60 ml/min 08/09/19 05:41 BUN/Creatinine Ratio 17 % 08/09/19 05:41 Glucose 106 mg/dL (65-100) H 08/09/19 05:41 POC Glucose 112 (70-105) H 08/08/19 00:18 Hemoglobin A1c 5.7 % (4-6) 08/07/19 13:43 Calcium 9.9 mg/dL (8.4-10.2) 08/09/19 05:41 Total Bilirubin 0.40 mg/dL (0.1-1.2) 08/09/19 05:41 AST 16 units/L (5-40) 08/09/19 05:41 ALT 12 units/L (7-56) 08/09/19 05:41 Alkaline Phosphatase 91 units/L (35-129) 08/09/19 05:41 Total Protein 6.7 g/dL (6.3-8.2) 08/09/19 05:41 Albumin 3.7 g/dL (3.9-5) L 08/09/19 05:41 Albumin/Globulin Ratio 1.2 % 08/09/19 05:41 Triglycerides 33 mg/dL (2-149) 08/09/19 05:41 Cholesterol 115 mg/dL (50-199) 08/09/19 05:41 LDL Cholesterol Direct 49 mg/dL (50-130) L 08/09/19 05:41 HDL Cholesterol 65 mg/dL (40-59) H 08/09/19 05:41 Cholesterol/HDL Ratio 1.76 % 08/09/19 05:41 TSH 1.340 mlU/mL (0.270-4.200) 08/09/19 05:41 Urine Color Yellow (Yellow) 08/07/19 21:20 Urine Turbidity Clear (Clear) 08/07/19 21:20 Urine pH 6.0 (5.0-7.0) 08/07/19 21:20 Ur Specific [place] 1.013 (1.003-1.030) 08/07/19 21:20 Urine Protein <15 mg/dl mg/dL (Negative) 08/07/19 21:20 Urine Glucose (UA) Neg mg/dL (Negative) 08/07/19 21:20 Urine Ketones Neg mg/dL (Negative) 08/07/19 21:20 Urine Blood Neg (Negative) 08/07/19 21:20 Urine Nitrite Neg (Negative) 08/07/19 21:20 Urine Bilirubin Neg (Negative) 08/07/19 21:20 Urine Urobilinogen 2.0 mg/dL (<2.0) 08/07/19 21:20 Ur Leukocyte Esterase Mod (Negative) 08/07/19 21:20 Urine WBC (Auto) 23.0 /HPF (0.0-6.0) H 08/07/19 21:20 Urine RBC (Auto) 2.0 /HPF (0.0-6.0) 08/07/19 21:20 U Epithel Cells (Auto) < 1.0 /HPF (0-13.0) 08/07/19 21:20 Urine Mucus Few /HPF 08/07/19 21:20 Valproic Acid 58.9 ug/mL (50-100) 08/14/19 10:34 Coronavirus (PCR) Negative (Negative) 08/14/19 10:50 Core Measure Documentation - Palliative Care Palliative Care/ Comfort Measures: Not Applicable - Core Measures Any of the following diagnoses?: none Exam - Constitutional Vitals: Temp Pulse Resp BP Pulse Ox 97.9 F 90 18 150/72 96 08/14/19 08:39 08/14/19 10:04 08/14/19 08:39 08/14/19 10:04 08/14/19 08:39 - EENT Eyes: Present: PERRL, EOM intact ENT: hearing intact, clear oral mucosa - Neck Neck: Present: supple, normal ROM - Respiratory Respiratory effort: normal - Abdominal Female genitourinary: Present: normal - Integumentary Integumentary: Present: clear, warm, dry Plan Care Plan Goals: Goals: Maintain good and stable mental health. Plan of Treatment: Plan of Treatment: The patient should be compliant with medications, not to use drugs and not to drink alcohol. The patient understands that if suicidal ideas, homicidal ideas, or any endangering thoughts arise, the patient should immediately seek for emergent assistance including but not limited to crisis hot line and emergency room. Follow up with outpatient Psychiatrist and PCP within 7 - 14 days of discharge. Health Concerns: None indicated at this time Follow up with: PRIMARY CARE, [Primary Care Provider] - 7 Days Prescriptions: Divalproex [Depakote Dr] 500 mg PO BID #60 tablet risperiDONE [RisperDAL] 2 mg PO BID #60 tablet
[2019-08-14] MEDS: traZODone 50 MG TAB PO SCH (21:02)
--- NOTE | 2019-08-15 07:06 | Progress Note ---
Subjective Date of service: 08/15/19 Principal diagnosis: Schizoaffective Disorder Subjective Comment: Nurse note: Pt spent his evening in activity room sitting quietly in a chair, pt is alert and oriented to person and place, calm and cooperative, able to make needs known, disorganized, bizarre, medication compliant, good appetite, discharge cancelled due to no transport, no complaint voiced, no distress noted, will continue to monitor for safety. Psych Progress HPI Patient unable to be discharged yesterday due to transport issues, today she reports sleeping okay, smiley as she talks and excited about going home today. Reason for continued inpatient treatment: To be Discharged this AM REVIEW OF SYSTEMS Constitutional: Negative for weight loss ENT: Negative for stridor Respiratory: Negative for cough or hemoptysis All other systems reviewed and are negative MENTAL STATUS EXAMINATION General Appearance: Dressed appropriately. Behavior: Easily irritable, cooperative Mood: Im good Affect: Congruent with stated mood Speech: Normal tone and pace Thought Process: Circumstitial Suicidal Ideation: Denies Homicidal Ideation: Denies Hallucinations: Denies Delusions: None elicited Insight and Judgment: Limited Memory/Cognition: Limited ASSESSMENT Schizoaffective Disorder Treatment Plan Discharged this AM to facility. Medications and Allergies Allergies Allergy/AdvReac Type Severity Reaction Status Date / Time No Known Allergies Allergy Verified 07/17/19 13:24 Home Medications Medication Instructions Recorded Confirmed Last Taken Type Amlodipine Besylate [Norvasc] 5 mg PO DAILY #30 tablet 07/17/19 08/08/[address] [Jessica Capps] 500 mg PO BID #60 tablet 08/14/19 Unknown Rx risperiDONE [RisperDAL] 2 mg PO BID #60 tablet 08/14/19 Unknown Rx Active Meds: Active Medications Amlodipine Besylate (Amlodipine) 5 mg PO DAILY [facility] Last Admin: 08/14/19 10:04 Dose: 5 mg Documented by: Divalproex Sodium (Jessica Capps) 500 mg PO BID [facility] Last Admin: 08/14/19 21:01 Dose: 500 mg Documented by: Haloperidol Lactate (Haldol) 2 mg IM Q6H PRN PRN Reason: Agitation Lorazepam (Ativan) 1 mg IM Q6H PRN PRN Reason: Agitation Melatonin (Melatonin) 5 mg PO QHS PRN PRN Reason: Sleep Last Admin: 08/12/19 22:02 Dose: 5 mg Documented by: Risperidone (Risperdal) 2 mg PO BID [facility] Last Admin: 08/14/19 21:02 Dose: 2 mg Documented by: Trazodone HCl (Desyrel) 50 mg PO QHS [facility] Last Admin: 08/14/19 21:02 Dose: 50 mg Documented by: Results - Results Labs/Vitals: Laboratory Last Values WBC 8.1 K/mm3 (4.5-11.0) 08/09/19 05:41 RBC 4.30 M/mm3 (3.65-5.03) 08/09/19 05:41 Hgb 12.3 gm/dl (10.1-14.3) 08/09/19 05:41 Hct 38.4 % (30.3-42.9) 08/09/19 05:41 MCV 89 fl (79-97) 08/09/19 05:41 MCH 29 pg (28-32) 08/09/19 05:41 MCHC 32 % (30-34) 08/09/19 05:41 RDW 15.3 % (13.2-15.2) H 08/09/19 05:41 Plt Count 266 K/mm3 (140-440) 08/09/19 05:41 Lymph % (Auto) 34.9 % (13.4-35.0) 08/09/19 05:41 [place] % (Auto) 13.6 % (0.0-7.3) H 08/09/19 05:41 Eos % (Auto) 1.0 % (0.0-4.3) 08/09/19 05:41 Baso % (Auto) 0.4 % (0.0-1.8) 08/09/19 05:41 Lymph # 2.8 K/mm3 (1.2-5.4) 08/09/19 05:41 [place] # 1.1 K/mm3 (0.0-0.8) H 08/09/19 05:41 Eos # 0.1 K/mm3 (0.0-0.4) 08/09/19 05:41 Baso # 0.0 K/mm3 (0.0-0.1) 08/09/19 05:41 Seg Neutrophils % 50.1 % (40.0-70.0) 08/09/19 05:41 Seg Neutrophils # 4.0 K/mm3 (1.8-7.7) 08/09/19 05:41 Sodium 140 mmol/L (137-145) 08/09/19 05:41 Potassium 3.9 mmol/L (3.6-5.0) 08/09/19 05:41 Chloride 104.0 mmol/L (98-107) 08/09/19 05:41 Carbon Dioxide 25 mmol/L (22-30) 08/09/19 05:41 Anion Gap 15 mmol/L 08/09/19 05:41 BUN 12 mg/dL (7-17) 08/09/19 05:41 Creatinine 0.7 mg/dL (0.7-1.2) 08/09/19 05:41 Estimated GFR > 60 ml/min 08/09/19 05:41 BUN/Creatinine Ratio 17 % 08/09/19 05:41 Glucose 106 mg/dL (65-100) H 08/09/19 05:41 POC Glucose 112 (70-105) H 08/08/19 00:18 Hemoglobin A1c 5.7 % (4-6) 08/07/19 13:43 Calcium 9.9 mg/dL (8.4-10.2) 08/09/19 05:41 Total Bilirubin 0.40 mg/dL (0.1-1.2) 08/09/19 05:41 AST 16 units/L (5-40) 08/09/19 05:41 ALT 12 units/L (7-56) 08/09/19 05:41 Alkaline Phosphatase 91 units/L (35-129) 08/09/19 05:41 Total Protein 6.7 g/dL (6.3-8.2) 08/09/19 05:41 Albumin 3.7 g/dL (3.9-5) L 08/09/19 05:41 Albumin/Globulin Ratio 1.2 % 08/09/19 05:41 Triglycerides 33 mg/dL (2-149) 08/09/19 05:41 Cholesterol 115 mg/dL (50-199) 08/09/19 05:41 LDL Cholesterol Direct 49 mg/dL (50-130) L 08/09/19 05:41 HDL Cholesterol 65 mg/dL (40-59) H 08/09/19 05:41 Cholesterol/HDL Ratio 1.76 % 08/09/19 05:41 TSH 1.340 mlU/mL (0.270-4.200) 08/09/19 05:41 Urine Color Yellow (Yellow) 08/07/19 21:20 Urine Turbidity Clear (Clear) 08/07/19 21:20 Urine pH 6.0 (5.0-7.0) 08/07/19 21:20 Ur Specific [place] 1.013 (1.003-1.030) 08/07/19 21:20 Urine Protein <15 mg/dl mg/dL (Negative) 08/07/19 21:20 Urine Glucose (UA) Neg mg/dL (Negative) 08/07/19 21:20 Urine Ketones Neg mg/dL (Negative) 08/07/19 21:20 Urine Blood Neg (Negative) 08/07/19 21:20 Urine Nitrite Neg (Negative) 08/07/19 21:20 Urine Bilirubin Neg (Negative) 08/07/19 21:20 Urine Urobilinogen 2.0 mg/dL (<2.0) 08/07/19 21:20 Ur Leukocyte Esterase Mod (Negative) 08/07/19 21:20 Urine WBC (Auto) 23.0 /HPF (0.0-6.0) H 08/07/19 21:20 Urine RBC (Auto) 2.0 /HPF (0.0-6.0) 08/07/19 21:20 U Epithel Cells (Auto) < 1.0 /HPF (0-13.0) 08/07/19 21:20 Urine Mucus Few /HPF 08/07/19 21:20 Valproic Acid 58.9 ug/mL (50-100) 08/14/19 10:34 Coronavirus (PCR) Negative (Negative) 08/14/19 10:50 Last Vital Signs Temp 97.9 F 08/14/19 08:39 Pulse 90 08/14/19 10:04 Resp 18 08/14/19 08:39 BP 150/72 08/14/19 10:04 Pulse Ox 96 08/14/19 08:39
[2019-08-15 07:38] VITALS: BP 114/82
[2019-08-15] MEDS: DIVALPROEX DR 500 MG TAB PO SCH (09:14)
[2019-08-15] MEDS: amLODIPine 5 MG TAB PO SCH (09:14)
[2019-08-15] MEDS: risperiDONE 1 MG TAB PO SCH (09:14)
== END 2019-08-15 09:25 | disposition home or self-care (01) | DRG 885 ==
LOC: 3A 18:57 → UNDOADMIN 18:57 → 5A 23:38
PROVIDERS: ADMIT Psychiatry & Neurology Psychiatry; ATTEND Psychiatry & Neurology Psychiatry
DX: F25.9 Schizoaffective disorder, unspecified (principal); I10 Essential (primary) hypertension; Z20.828 Contact with and (suspected) exposure to other viral communicable diseases; Z79.899 Other long term (current) drug therapy
CPT/HCPCS: 36415; 71045; 80048; 80053; 80061; 80076; 80164; 81001; 82550; 82553; 82962; 83036; 83735; 84443; 84484; 85025; 87086; 96372; G0378; J2060; J3486; U0003-CS